=== PATIENT | male | born 1930 | race Caucasian/White ===

== ENCOUNTER 2018-01-10 08:18 | Emergency (ER) | payer MEDICARE, BC ==
[~2018-01-10] VITALS: Ht 175.3 cm; Wt 98.6 kg
[~2018-01-10 08:18] MED LIST: ANTIVERT 25MG25 MG PO; ASPIR-LOW81 MG PO; ASPIR-LOX325 MG PO; AVODART 0.5MG0.5 MG PO; BENAZEPRIL; BETIMOL 0.5% OPH5 ML OU; CARDURA 2MG2 MG PO; CELEBREX 200MG200 MG PO; CLOPIDOGREL; DIGOXIN PO; LIPITOR 10MG10 MG PO; LOTENSIN40 MG PO; MIRALAX 17GM PK1 PKT PO; MULTIPLE VITAMI1 CAP PO; NORVASC 10MG10 MG PO; NORVASC10 MG PO; OCUVITE1 TA1 PO; OMEGA 31000 MG PO; PROSCAR 5MG5 MG PO; SIMVASTATIN20 MG PO; TRAVATAN Z 5 ML5 ML; XARELTO20 MG PO; ZEBETA 5MG5 MG PO
[2018-01-10 08:27] VITALS: TEMP 97.9
[2018-01-10] MEDS ORDERED: ASPIRIN 81M81 MG/TA2 PO (08:59)
[2018-01-10] MEDS ORDERED: VITAMIN D 1001000 IU PO (09:01)
[2018-01-10] MEDS ORDERED: CUTIVATE15GMOINT TOP (09:02)
[2018-01-10] MEDS ORDERED: XALATAN EYE DROPS OD (09:02)
[2018-01-10] MEDS ORDERED: ZOCOR 20MG20 MG PO (09:03)
[2018-01-10] MEDS ORDERED: BETAPACE 80MG80 MG PO (09:03)
[2018-01-10] MEDS ORDERED: LUTEIN6 MG PO (09:03)
[2018-01-10 09:44] LABS: BASO % 0.6 % (0.0-2.0); EOS # 0.2 (0.0-0.7); EOS % 3.3 % (0-4.0); GRAN # 3.8 (1.4-6.5); GRAN % 69.6 % (42.2-75.2); HEMATOCRIT 37.4 % (42.0-52.0); HEMOGLOBIN 13.2 g/dl (13.5-18.0); LYMPH # 1.2 (1.2-3.4); LYMPH % 21.3 % (20.0-51.0); MEAN CELL VOLUME 88 fl (80.0-100.0); MEAN CORPUSCULAR HEMOGLOBIN 31 pg (27.0-31.0); MEAN CORPUSCULAR HGB CONC 35 g/dl (33.0-37.0); MONO # 0.3 (0.1-0.6); PLATELET COUNT 147 K/mm3 (130-400); RED BLOOD COUNT 4.23 M/mm3 (4.20-5.60); REDCELL DISTRIBUTION WIDTH-CV 12.5 % (11.5-14.5)
[2018-01-10 09:53] LABS: CALCIUM 8.9 mg/dL (8.4-10.2); CREATININE, serum 0.54 mg/dL (0.66-1.25); POTASSIUM 3.9 mmol/L (3.4-5.0)
[2018-01-10] MEDS ORDERED: BONINE25 MG PO (10:07)
[2018-01-10 10:24] VITALS: BP 144/77; PULSE 60
== END 2018-01-10 10:27 | disposition home or self-care (01) ==
LOC: COL.ER 08:18
PROVIDERS: Emergency Medicine
DX: R42 Dizziness and giddiness (principal); I10 Essential (primary) hypertension; Z79.82 Long term (current) use of aspirin; Z79.51 Long term (current) use of inhaled steroids

== ENCOUNTER → 2018-09-15 | Outpatient (CLI) | payer MEDICARE, BC ==
[~2018-09-15] MED LIST changes: +ASPIRIN 81M81 MG/TA2 PO; +BETAPACE 80MG80 MG PO; +BONINE25 MG PO; +CUTIVATE15GMOINT TOP; +LUTEIN6 MG PO; +VITAMIN D 1001000 IU PO; +XALATAN EYE DROPS OD; +ZOCOR 20MG20 MG PO
== END ==
LOC: COL.VAS 13:06
DX: M79.89 Other specified soft tissue disorders (principal)

== ENCOUNTER 2021-01-03 13:20 | Emergency (ER) | payer MEDICARE, BC ==
[~2021-01-03] VITALS: Ht 175.3 cm; Wt 88.6 kg
[2021-01-03 13:32] VITALS: BP 143/91; TEMP 98
[2021-01-03] MEDS ORDERED: ATARAX 25MG25 MG/TAB PO (13:51)
[2021-01-03] MEDS ORDERED: PREDNISONE20 MG PO (13:51)
[2021-01-03 14:01] VITALS: PULSE 80
== END 2021-01-03 14:01 | disposition home or self-care (01) ==
LOC: COL.ER 13:20
DX: Q80.9 Congenital ichthyosis, unspecified (principal); L42 Pityriasis rosea; I10 Essential (primary) hypertension; E78.5 Hyperlipidemia, unspecified; N40.0 Benign prostatic hyperplasia without lower urinary tract symptoms; Z79.899 Other long term (current) drug therapy

== ENCOUNTER 2021-02-17 20:10 | Inpatient (IN) | payer MEDICARE, BC ==
[~2021-02-17] VITALS: Ht 177.8 cm; Wt 91.6 kg
[~2021-02-17 20:10] MED LIST changes: +ATARAX 25MG25 MG/TAB PO; +PREDNISONE20 MG PO
[2021-02-17 21:36] LABS: BASO % 0.3 % (0.0-2.0); EOS # 1.1 (0.0-0.7); EOS % 7.8 % (0-4.0); GRAN # 10.9 (1.4-6.5); GRAN % 78.7 % (42.2-75.2); HEMATOCRIT 49.2 % (42.0-52.0); HEMOGLOBIN 16.8 g/dl (13.5-18.0); LYMPH % 7.4 % (20.0-51.0); MEAN CELL VOLUME 93 fl (80.0-100.0); MEAN CORPUSCULAR HEMOGLOBIN 32 pg (27.0-31.0); MEAN CORPUSCULAR HGB CONC 34 g/dl (33.0-37.0); MEAN PLATELET VOLUME 9.6 fl (7.4-10.4); MONO # 0.7 (0.1-0.6); MONO % 5.2 % (1.7-9.3); PLATELET COUNT 283 K/mm3 (130-400); RED BLOOD COUNT 5.31 M/mm3 (4.20-5.60); REDCELL DISTRIBUTION WIDTH-CV 13.9 % (11.5-14.5)
[2021-02-17 21:53] LABS: ALBUMIN 3.4 gm/dL (3.5-5.0); BILIRUBIN,TOTAL 2.2 mg/dL (0.0-1.0); C-REACTIVE PROTEIN 0.9 mg/dL (0.0-0.9); CALCIUM 8.8 mg/dL (8.4-10.2); CREATININE, serum 0.9 (0.66-1.25); POTASSIUM 4.3 mmol/L (3.4-5.0); TOTAL PROTEIN 5.9 gm/dL (6.4-8.2)
[2021-02-18] VITALS (7 sets, daily range): BP systolic 99–156; BP diastolic 51–93; PULSE 70–102; TEMP 97.5–98.5
[2021-02-18] MEDS ORDERED: ELIMITE TOP (02:31)
[2021-02-18] MEDS ORDERED: LOTRISONE 0.05%1 CRE TOP (02:32)
--- NOTE | 2021-02-18 03:08 | NUR ---
Received patient via wheelchair from ED at 0240H. He is alert and oriented. He has a cane with him. He has generalized rash and blisters. Some areas has blisters that has popped out already. With INT on left AC. Farrah CALDERON went in to see the patient. [facility] reviewed and updated. He denies pain. He is on room air.
--- NOTE | 2021-02-18 06:17 | NUR ---
Tried calling Dr. Fu for consult, no answer. Left a voicemail.
[2021-02-18 06:40] LABS: BASO # 0.1 (0.0-0.2); BASO % 0.4 % (0.0-2.0); EOS # 0.2 (0.0-0.7); EOS % 1.4 % (0-4.0); GRAN # 9.8 (1.4-6.5); GRAN % 87.7 % (42.2-75.2); HEMATOCRIT 45.2 % (42.0-52.0); HEMOGLOBIN 14.9 g/dl (13.5-18.0); LYMPH # 0.9 (1.2-3.4); LYMPH % 7.9 % (20.0-51.0); MEAN CELL VOLUME 96 fl (80.0-100.0); MEAN CORPUSCULAR HEMOGLOBIN 32 pg (27.0-31.0); MEAN CORPUSCULAR HGB CONC 33 g/dl (33.0-37.0); MEAN PLATELET VOLUME 10.5 fl (7.4-10.4); MONO # 0.2 (0.1-0.6); MONO % 1.9 % (1.7-9.3); PLATELET COUNT 234 K/mm3 (130-400); RED BLOOD COUNT 4.73 M/mm3 (4.20-5.60)
[2021-02-18 06:42] LABS: CALCIUM 8.3 mg/dL (8.4-10.2); CREATININE, serum 0.72 (0.66-1.25); POTASSIUM 4.2 mmol/L (3.4-5.0)
--- NOTE | 2021-02-18 07:45 | NUR ---
Shift assessment complete. Pt alert, oriented to self. Confused on where he is and continually asks what kind of restaurant this is. Occasionally becomes agitated and attempts to get up w/o assistance. Encouraged to call before getting up, fall precautions in place and bed alarm on. Entire body covered in open sores and pustules, pt denies pain or itchiness w/this. Continuing to monitor.
--- NOTE | 2021-02-18 11:56 | NUR ---
First visit from the continuing education director. No needs right now.
--- NOTE | 2021-02-18 16:48 | NUR ---
Pt moved to room 310 at this time to be closer to nurse station due to increased agitation and confusion.
[2021-02-19 05:40] VITALS: BP 119/49; PULSE 79; TEMP 97.6
--- NOTE | 2021-02-19 05:44 | NUR ---
Resting quietly, VS stable, no c/o at this time, call spike w/i paloma, will continue to monitor.
[2021-02-19 07:36] VITALS: BP 109/64; PULSE 67; TEMP 97.6
[2021-02-19] MEDS ORDERED: PREDNISONE20 MG PO (09:37)
[2021-02-19] MEDS ORDERED: DOXYCYCLINE HY100 MG PO (09:39)
--- NOTE | 2021-02-19 10:39 | NUR ---
Pt couldn't find his wallet and advises that it was taken with his meds. I contacted the pharmacist who did find his package of meds and a black bag which did have his wallet in it in the pharmacy. I did obtain his bag of meds and black bag from the pharmacy, sealed in a ziplock bag and returned it to him which seemed to relieve him a great deal. He reports having a "brain fog and not remembering things clearly. He was very grateful to have his things back and he was advised that until discharge, he is not to take any of his hme meds which he agrees to.
[2021-02-19 12:21] VITALS: BP 116/62; PULSE 64; TEMP 97.6
--- NOTE | 2021-02-19 12:54 | NUR ---
PT A/0X2, BP RECORDED A LITTLE LOW THIS MORNING, HELD BP MEDICATION. 02 ROOM AIR, PT DENIES PAIN. CURRENTLY AT BEDSIDE. BOTH AND PT VERBALIZE UNDERSTANDING OF UPCOMING APPOINTMENT WITH DERMATOLOGY. THIS NURSE REVIEWED ALL DISCHARGE CRITERIA WITH BOTH PT AND . NO ADDITIONAL NEEDS EXPRESSED AT THIS TIME. CALL LIGHT WITHIN REACH.
--- NOTE | 2021-02-19 13:12 | NUR ---
PT DISCHARGED AT 1310 AND ESCORTED OUT BY MEDICAL STAFF AND VIA WHEELCHAIR.
--- NOTE | 2021-02-19 13:50 | NUR ---
Personalized Living Manager Nurse attended clincal rounds with the team. The patient to discharge today, 02/19 with [facility]. PT/OT/Nursing/Wound Care. Following rounds, SAÚL met with the patient to complete intake. The patient lives in [place] with his , Zita. The patient uses a cane. The patient's PCP is Dr. Gorman and patient receives medications from [facility]. The patient does not have advanced directives in the EMR but believes they are complete. PT is recommending home health. SW discussed [employer] list of agencies. The patient's choice is [facility]. Referral sent. SW contacted [facility] and reports they can accept the patient for services. Discharge orders faxed. PT is recommending a walker. Walker order sent to [facility] and they delivered a walker prior to the patient's discharge. Due to the patient's moments of confusion and no local support, this SW make APS report, intake # [id number]. There are no additional needs.
== END 2021-02-19 13:13 | disposition home health service (06) | DRG 872 ==
LOC: COL.ER 20:10 → MEDICAL 02-18 01:03
PROVIDERS: Physician Assistant; Student in an Organized Health Care Education/Training Program; ADMIT Family Medicine
DX: A41.9 Sepsis, unspecified organism (principal); L12.9 Pemphigoid, unspecified; L03.818 Cellulitis of other sites; I10 Essential (primary) hypertension; E78.5 Hyperlipidemia, unspecified; N40.0 Benign prostatic hyperplasia without lower urinary tract symptoms; I25.10 Atherosclerotic heart disease of native coronary artery without angina pectoris; Z95.818 Presence of other cardiac implants and grafts; E11.65 Type 2 diabetes mellitus with hyperglycemia; Z20.828 Contact with and (suspected) exposure to other viral communicable diseases
CPT/HCPCS: 99223-AI; 99239; J1200; J1650; J2930; J7030; J7512; Q9967

== ENCOUNTER 2021-05-06 19:25 | Emergency (ER) | payer MEDICARE, BC ==
[~2021-05-06] VITALS: Ht 177.8 cm; Wt 79.5 kg
[~2021-05-06 19:25] MED LIST changes: +DOXYCYCLINE HY100 MG PO; +ELIMITE TOP; +LOTRISONE 0.05%1 CRE TOP
[2021-05-06 20:37] LABS: HEMOGLOBIN 11.4 g/dl (13.5-18.0); MEAN CELL VOLUME 97 fl (80.0-100.0); MEAN CORPUSCULAR HEMOGLOBIN 31 pg (27.0-31.0); MEAN CORPUSCULAR HGB CONC 32 g/dl (33.0-37.0); MEAN PLATELET VOLUME 8.9 fl (7.4-10.4); PLATELET COUNT 127 K/mm3 (130-400); RED BLOOD COUNT 3.72 M/mm3 (4.20-5.60); REDCELL DISTRIBUTION WIDTH-CV 15.1 % (11.5-14.5)
[2021-05-06 20:38] LABS: HEMATOCRIT 35.9 % (42.0-52.0)
[2021-05-06 20:43] LABS: INR 1.4 (0.8-3.0); PROTHROMBIN TIME 15.8 SECONDS (9.7-12.8)
[2021-05-06 21:00] LABS: ANISOCYTOSIS 1+; EOSINOPHIL 10 % (0-4); HYPOCHROMIA 2+; LYMPHOCYTE 11 % (20.0-51.0); METAMYELOCYTE 1 % (0-0); NEUTROPHILS 75 % (42.0-75.2); OVALOCYTES 1+; PLATELET ESTIMATE DECREASED (NORMAL); POIKILOCYTOSIS 1+
[2021-05-06 21:09] LABS: ALBUMIN 1.9 gm/dL (3.5-5.0); BILIRUBIN,TOTAL 1.4 mg/dL (0.0-1.0); CALCIUM 6.3 mg/dL (8.4-10.2); CREATININE, serum 0.77 (0.66-1.25); TOTAL PROTEIN 3.9 gm/dL (6.4-8.2)
[2021-05-06 21:12] LABS: POTASSIUM 2.8 mmol/L (3.4-5.0)
[2021-05-06 21:21] LABS: TROPONIN-I 0.018 ng/mL (0.000-0.035)
[2021-05-07 02:15] VITALS: BP 137/80; PULSE 84; TEMP 98.1
== END 2021-05-07 02:16 | disposition home or self-care (01) ==
LOC: COL.ER 19:25
PROVIDERS: Emergency Medicine
DX: E87.6 Hypokalemia (principal); R79.1 Abnormal coagulation profile; I10 Essential (primary) hypertension; I48.91 Unspecified atrial fibrillation; I25.10 Atherosclerotic heart disease of native coronary artery without angina pectoris; Z79.82 Long term (current) use of aspirin; Z79.899 Other long term (current) drug therapy
CPT/HCPCS: J3480; J7030; Q9967